=== PATIENT | female | born 1995 | race Caucasian/White ===

== ENCOUNTER 2021-12-31 12:49 | Outpatient (CLI) | payer OTHER ==
--- NOTE | 2021-12-31 17:14 | MRI Report ---
PROCEDURE: Foot RT W/O INDICATIONS: PAIN IN RIGHT FOOT TECHNIQUE: Noncontrast sagittal T1 spin echo and T2 fast spin echo with fat saturation, long-axis T1 spin echo a nd T2 fast spin echo with fat saturation, short-axis proton density fast spin echo and T2 fast spin e cho with fat saturation through the forefoot. COMPARISON: None. FINDINGS: Image quality: Excellent. Bones and joints: There is no metatarsal stress fracture. Mild osteoarthritic changes involving artic ulation between first metatarsal head and sesamoids with fragmented appearance of medial sesamoid and mild marrow edema suggestive of subacute fracture involving medial sesamoid of first metatarsal head . No other area of abnormal marrow signal is seen. Soft tissues: The visualized plantar foot muscles demonstrate normal signal and bulk. Visualized fl exor and extensor tendons appear intact, without tenosynovitis. No soft tissue ganglion cysts or bur mahin fluid collections. Sagittal images demonstrate at least partial thickness tear involving medial first MTP capsuloligamentous structure near its distal insertion. IMPRESSION: 1. 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 2. No other area of abnormal marrow signal. No metatarsal stress fracture. 3. Rest of the tendons and ligaments of midfoot and forefoot are grossly intact. Reviewed by: Mason Loyd MD on 12/31/2021 5:12 PM PDT Approved by: Mason Loyd MD on 12/31/2021 5:12 PM PDT Station ID: [id number]
== END 2021-12-31 12:50 | disposition home or self-care (01) ==
LOC: DI 12:49
PROVIDERS: ATTEND Student in an Organized Health Care Education/Training Program
DX: M79.674 Pain in right toe(s) (principal); R93.6 Abnormal findings on diagnostic imaging of limbs

== ENCOUNTER 2023-01-20 12:48 | Outpatient (CLI) | payer OTHER ==
--- NOTE | 2023-01-21 13:06 | Ultrasound Report ---
LIMITED ULTRASOUND OF RIGHT BREAST: 01/20/2023 CLINICAL: Palpable right breast lump. No prior exams were available for comparison. Color flow ultrasound of the right breast 2 o'clock region was performed. Nguyen scale images of the r eal-time examination were reviewed. There is an oval hypoechoic mass with circumscribed margins in the right breast at 2 o'clock, 6 cm fr om the nipple. The mass measures 16 x 10 x 17 mm. There is an adjacent oval hypoechoic mass with circ umscribed margins measuring 21 x 7 x 20 mm. The masses correspond to area of clinical palpable concer n. IMPRESSION: PROBABLY BENIGN Right breast oval circumscribed masses at 2 o'clock measuring up to 17 mm and 21 mm corresponding to area of palpable concern. 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 Recommend follow-up ultrasound in 6 months to demonstrate stability. Findings and recommendations were conveyed to the patient during today's evaluation. This exam was interpreted at Station ID: [id number]. Electronically Signed By: Lorenza boswellb/:01/20/2023 13:42:43 Ultrasound BI-RADS: 3 Probably benign BI-RADS CATEGORY: (3) - 3 Ultrasound [id number] 6 month follow-up LATERALITY: (B)
== END 2023-01-20 12:49 | disposition home or self-care (01) ==
LOC: DI 12:48
PROVIDERS: ATTEND Registered Nurse
DX: N63.12 Unspecified lump in the right breast, upper inner quadrant (principal)

== ENCOUNTER 2023-07-07 14:22 | Outpatient (CLI) | payer OTHER ==
--- NOTE | 2023-07-08 10:19 | Ultrasound Report ---
LIMITED ULTRASOUND OF RIGHT BREAST: 07/07/2023 CLINICAL: Patient returns today for ultrasound to evaluate a palpable abnormality in the right breast . Comparison is made to exam dated: 01/20/2023 ultrasound - . Color flow and real-time ultrasound of the right breast 2 o'clock region were performed. Nguyen scale images of the real-time examination were reviewed. There is a 1.8 cm x 1.4 cm x 1 cm oval mass with a circumscribed margin in the right breast at 2 o'cl ock posterior depth 6 cm from the nipple. This oval mass is hypoechoic. This abnormality is not sig nificantly changed. Color flow imaging demonstrates that there is no increase in vascularity. There also is a 2.6 cm x 1.8 cm x 0.9 cm oval mass with a circumscribed margin in the right breast at 2 o'clock posterior depth 6 cm from the nipple. This oval mass is hypoechoic. This abnormality is not significantly changed. Color flow imaging demonstrates that there is no increase in vascularity. IMPRESSION: PROBABLY BENIGN The 1.8 cm x 1.4 cm x 1 cm oval mass in the right breast at 2 o'clock posterior depth is probably sangita ign. The 2.6 cm x 1.8 cm x 0.9 cm oval mass in the right breast at 2 o'clock posterior depth is probably b enign. A follow-up right ultrasound in 6 months is recommended to demonstrate stability. This exam was interpreted at Station ID: [id number]. Electronically Signed By: Duglas ching/isela:07/08/2023 07:32:04 Ultrasound BI-RADS: 3 Probably benign BI-RADS CATEGORY: (3) - 3 Ultrasound [id number] 6 month follow-up LATERALITY: (R)
== END 2023-07-07 14:23 | disposition home or self-care (01) ==
LOC: DI 14:22
PROVIDERS: ATTEND Registered Nurse
DX: N63.12 Unspecified lump in the right breast, upper inner quadrant (principal)